=== PATIENT | female | born 2005 | race African-American/Black ===

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

== ENCOUNTER 2024-12-29 23:21 | Emergency (ER) | payer OTHER ==
[2024-12-30 00:28] LABS: BHCG - Serum POSITIVE (NEGATIVE); Pregs Control Background? CLEAR/WHITE (CLR/WHITE); Pregs Control Bar Appear? YES (CONTROL BAR)
== END 2024-12-30 00:40 | disposition home or self-care (01) ==
LOC: ERS 23:21
DX: Z32.01 Encounter for pregnancy test, result positive (principal); Z3A.01 Less than 8 weeks gestation of pregnancy
CPT/HCPCS: 84703; 99282